=== PATIENT | male | born 1935 | race Caucasian/White ===

== ENCOUNTER 2016-12-26 00:32 | Emergency (ER) | payer OTHER, BC ==
[~2016-12-26] VITALS: Ht 170.2 cm; Wt 82.2 kg
[~2016-12-26 00:32] MED LIST: ECOTRIN325 MG PO; Ecotrin PO; FLOMAX0.4 M1 PO; NOHOMEMEDS
[2016-12-26 02:00] LABS: BASOPHIL COUNT 0.1 K/uL (0-0.1); EOSINOPHIL (%) 0.4 % (0-5); HEMATOCRIT 41.1 % (38.0-50.0); IMMATURE GRANULOCYTE (%) 0.4 % (0.0-0.7); INSTRUMENT ABS NEUTROPHIL CT 7.6 K/uL; LYMPHOCYTE COUNT 1.5 K/uL (1.0-2.8); MCH 31.3 PG (29.0-34.0); MCHC 34.5 G/DL (30.0-36.0); MCV 90.5 FL (86-99); MEAN PLAT.VOLUME 10.3 uM^3 (9.0-12.4); MONOCYTE (%) 9.1 % (3-12); MONOCYTE COUNT 0.9 K/uL (0-0.8); NEUTROPHIL (%) 74.6 % (45-76); NEUTROPHIL COUNT 7.6 K/uL (1.8-6.4); PLATELET COUNT 198 K/uL (156-360); RBC DIS.WIDTH-CV 12.8 % (11.8-14.6); RBC DIS.WIDTH-SD 42.1 % (39-53); RED BLOOD COUNT 4.54 M/uL (4.00-5.50); WHITE BLOOD COUNT 10.2 K/uL (4.1-10.2)
[2016-12-26 02:11] LABS: CHLORIDE 105 mEq/L (99-109); POTASSIUM 3.7 mEq/L (3.7-5.4); SODIUM 140 mEq/L (136-147)
[2016-12-26 02:13] LABS: GLUCOSE 120 mg/dL (70-99)
[2016-12-26 02:14] LABS: ANION GAP 10 MEQ/L (2-14)
[2016-12-26 02:15] LABS: TOTAL BILIRUBIN 0.4 mg/dL (0.0-1.0)
[2016-12-26 02:17] LABS: ALKALINE PHOSPHATASE 62 IU/L (3-129); GFR ESTIMATE (CALCULATED) > 59 mL/min/
[2016-12-26 02:18] LABS: UREA NITROGEN (BUN) 13 mg/dL (9-23)
[2016-12-26 02:20] LABS: LIPASE 22 U/L (1.0-51.0)
[2016-12-26 02:21] LABS: ADD MIUA? YES; BILIRUBIN NEGATIVE; BLOOD NEGATIVE; COLOR YELLOW ((YELLOW)); GLUCOSE (STRIP) NEGATIVE; KETONES NEGATIVE; LEUKOCYTES NEGATIVE; NITRITE NEGATIVE; PROTEIN (STRIP) 100; SPECIFIC GRAVITY 1.016 (1.000-1.030); UROBILINOGEN 0.2 MG/DL (0.2-1.0)
[2016-12-26 02:21] LABS: TROP-I INTERPRETATION NEGATIVE; TROPONIN-I < 0.01 ng/mL (0.0-0.30)
[2016-12-26 02:28] LABS: BACTERIA NONE SEEN /HPF; EPITHELIAL CELLS RARE /HPF; MUCUS 1+ /LPF; UCUL ADDED? NO; WHITE BLOOD CELLS 0-5 /HPF (0-5)
[2016-12-26] MEDS ORDERED: MAALOX ADVANCE355 ML PO (03:29)
[2016-12-26] MEDS ORDERED: ZITHROMAX250 MG PO (03:34)
[2016-12-26 03:53] VITALS: BP 123/70
== END 2016-12-26 03:54 | disposition home or self-care (01) ==
LOC: EME 00:32
PROVIDERS: Emergency Medicine
DX: K30 Functional dyspepsia (principal); R07.9 Chest pain, unspecified; N40.0 Benign prostatic hyperplasia without lower urinary tract symptoms; Z88.6 Allergy status to analgesic agent; Z88.0 Allergy status to penicillin
CPT/HCPCS: 71020; 80053; 81003; 83690; 84484; 85025; 99281; 99284